=== PATIENT | male | born 1945 | race Caucasian/White ===

== ENCOUNTER 2018-08-26 08:32 | Emergency (ER) | payer MEDICARE ==
[2018-08-26 08:39] VITALS: BP 161/79; PULSE 66; RESP 18; TEMP 97.5
[2018-08-26] MEDS ORDERED: BACITRACIN 500 UNIT/GM OINT 28.4 GM TUBE TOPICAL ONE (08:46)
--- NOTE | 2018-08-26 08:50 | ED ---
Burn/Smoke HPI - General Chief complaint: Burn/Smoke Inhalation Stated complaint: Coffee spilled over over genital area Time Seen by Provider: 08/26/18 08:40 Source: patient, RN notes reviewed Mode of arrival: ambulatory Limitations: no limitations - History of Present Illness Initial comments: 73-year-old male presents emergency Department chief complaint of a Burn. Patient states that he went to touch a couple coffee states that was very hot states that it/backwards on to his lower abdomen and groin region. Patient states it did soak is closed states that he is redness in his lower abdomen, groin and over her genitalia. Patient states he has no scrotal pain he states he has some discomfort on his penile shaft and one area that blistered. Patient states that the pain has essentially resolved after taking Aleve. Patient states he is up-to-date on his tetanus. - Related Data Previous Rx's Medication Instructions Recorded SILVER sulfADIAZINE Cream 1 applic TOPICAL BID #400 gram 08/26/18 [Silvadene 1% Cream] Allergies Allergy/AdvReac Type Severity Reaction Status Date / Time No Known Allergies Allergy Verified 08/26/18 08:39 Review of Systems ROS Statement: Those systems with pertinent positive or pertinent negative responses have been documented in the HPI. ROS Other: All systems not noted in ROS Statement are negative. Past Medical History Past Medical History: Cancer, COPD, Hypertension Additional Past Medical History / Comment(s): prostate ca History of Any Multi-Drug Resistant Organisms: None Reported Additional Past Surgical History / Comment(s): prostate ca Past Psychological History: No Psychological Hx Reported Smoking Status: Former smoker Past Alcohol Use History: Occasional Past Drug Use History: None Reported General Exam Limitations: no limitations General appearance: alert, in no apparent distress Head exam: Present: atraumatic, normocephalic, normal inspection Respiratory exam: Present: normal lung sounds bilaterally. Absent: respiratory distress, wheezes, rales, rhonchi, stridor Cardiovascular Exam: Present: regular rate, normal rhythm, normal heart sounds. Absent: systolic murmur, diastolic murmur, rubs, gallop, clicks GI/Abdominal exam: Present: soft, normal bowel sounds, other (This is a first- degree burnlower abdomen there is erythema noted). Absent: distended, tenderness, guarding, rebound, rigid exam: Absent: normal inspection (First-degree burn noted in the inguinal regions, over the anterior surface of penile shaft one area approximately 3 mm that had blistering noted) Skin exam: Present: warm, dry Course Vital Signs 08/26/18 08:35 Temperature 97.5 F L Pulse Rate 66 Respiratory 18 Rate Blood Pressure 161/79 O2 Sat by Pulse 97 Oximetry Medical Decision Making - Medical Decision Making 73-year-old male presents emergency Department chief complaint of burn from coffee. He primarily has first-degree olvera with 1 minute area of second- degree. Burn covers approximately 2-3%. Patient was given bacitracin and Silvadene. Patient's tetanus is up-to-date. Disposition Clinical Impression: First degree burn of genitalia, First degree burn of groin Disposition: HOME SELF-CARE Condition: Stable Instructions: Second Degree Burn (ED), Superficial Burn (ED) Additional Instructions: Please return to the Emergency Department if symptoms worsen or any other concerns. Prescriptions: SILVER sulfADIAZINE Cream [Silvadene 1% Cream] 1 applic TOPICAL BID #400 gram Is patient prescribed a controlled substance at d/c from ED?: No Referrals: Nonstaff,Physician [Primary Care Provider] - 1-2 days Time of Disposition: 08:50
== END 2018-08-26 09:10 | disposition home or self-care (01) ==
LOC: EC 08:32
DX: T21.12XA Burn of first degree of abdominal wall, initial encounter (principal); T21.16XA Burn of first degree of male genital region, initial encounter; T31.0 Burns involving less than 10% of body surface; Z87.891 Personal history of nicotine dependence; Z85.46 Personal history of malignant neoplasm of prostate; Z98.890 Other specified postprocedural states; X10.0XXA Contact with hot drinks, initial encounter; Y93.89 Activity, other specified
CPT/HCPCS: 16000; 99283